=== PATIENT | female | born 1975 | race Caucasian/White ===

== ENCOUNTER → 2017-07-03 | Outpatient (CLI) | payer BC, OTHER ==
[~2017-07-03] MED LIST: VITAMIN C PO; VITAMIN D PO; [UNRECOGNIZED DRUG - OTHER] PO
== END | disposition home or self-care (01) ==
LOC: C.RDSM 16:25
PROVIDERS: ATTEND Family Medicine
DX: M25.572 Pain in left ankle and joints of left foot (principal)

== ENCOUNTER → 2017-07-09 | Outpatient (CLI) | payer OTHER ==
--- NOTE | 2017-07-09 15:56 | DIAGNOSTIC IMAGING REPORT ---
MRI LEFT ANKLE NO CONTRAST CLINICAL HISTORY: Persistent left ankle pain COMPARISON STUDY: Conventional radiographic study dated 07/03/2017 FINDINGS: Imaging was performed in sagittal, coronal, and axial planes. There are no areas of marrow edema to indicate occult fracture. There is minimal plantar calcaneal edema with minimal edema in the adjacent plantar fascia. Minimal plantar fasciitis is suspected. The anterior and posterior tibiofibular ligaments appear intact. The anterior posterior talo fibular ligaments appear intact. The deltoid ligament appears intact. There is no evidence for tendon tear or significant tendinopathy. IMPRESSION: 1. No evidence of occult fracture 2. No evidence of major ligamentous disruption 3. No evidence of tendon tear or stenotic and tendinopathy 4. Minimal plantar fasciitis Electronically signed by: Jorge L Yanes M.D. 07/09/2017 3:55 PM Dictated Date/Time: 07/09/2017 3:48 PM
== END | disposition home or self-care (01) ==
LOC: C.MRIBC 14:45
PROVIDERS: ATTEND Family Medicine
DX: M25.572 Pain in left ankle and joints of left foot (principal)

== ENCOUNTER → 2017-08-29 | Outpatient (CLI) | payer OTHER ==
--- NOTE | 2017-08-30 15:18 | MAMMOGRAPHY REPORT ---
BILATERAL FIRST EVER DIGITAL SCREENING MAMMOGRAM TOMOSYNTHESIS WITH CAD: 08/29/2017 CLINICAL HISTORY: . Baseline exam. Routine screening. TECHNIQUE: Breast tomosynthesis in addition to standard 2D mammography was performed. Current study was also evaluated with a Computer Aided Detection (CAD) system. COMPARISON: No prior exams were available for comparison. BREAST COMPOSITION: There are scattered areas of fibroglandular density in both breasts. FINDINGS: There is a 9 mm asymmetry in the superior posterior left breast on the MLO view that could represent normal overlapping tissue although additional spot compression tomosynthesis views and pos sible ultrasound are recommended. No other suspicious mass, architectural distortion or cluster of microcalcifications is seen bilatera lly. IMPRESSION: ACR BI-RADS CATEGORY 0: INCOMPLETE EVALUATION: NEED ADDITIONAL IMAGING EVALUATION The 9 mm asymmetry in the superior, posterior left breast needs additional imaging evaluation. The patient will be called to schedule an appointment. Approximately 10% of breast cancers are not detected with mammography. A negative mammographic report should not delay biopsy if a clinically suggestive mass is present. Kalani Faulkner M.D. ay/:08/29/2017 15:53:43 Youth Advocate: Jess FROST(Kathleen)(M), [facility] letter sent: Addl Imaging 0 BI-RADS Code: ACR BI-RADS Category 0: Incomplete Evaluation: Need Additional Imaging Evaluation
== END | disposition home or self-care (01) ==
LOC: C.MAMM 15:17
PROVIDERS: ATTEND Surgery Plastic and Reconstructive Surgery
DX: Z12.31 Encounter for screening mammogram for malignant neoplasm of breast (principal); N64.89 Other specified disorders of breast

== ENCOUNTER → 2017-09-04 | Outpatient (CLI) | payer OTHER ==
--- NOTE | 2017-09-04 15:16 | MAMMOGRAPHY REPORT ---
UNILATERAL LEFT DIGITAL DIAGNOSTIC MAMMOGRAM TOMOSYNTHESIS AND TARGETED BILATERAL ULTRASOUND: 8 CLINICAL HISTORY: 42-year-old woman called back from screening mammography for an asymmetry in the [place] perior posterior left breast on the MLO view. At the time of diagnostic workup in the left breast th e patient reported an area of abnormal sensation in the right upper outer quadrant for which targeted ultrasound was also performed. TECHNIQUE: Spot compression tomosynthesis left MLO, exaggerated lateral CC and CC views were obtained . COMPARISON: Comparison is made to exam dated: 08/29/2017 mammogram - [facility]. BREAST COMPOSITION: There are scattered areas of fibroglandular density in the left breast. FINDINGS: The spot compression left MLO view demonstrates effacement of the asymmetry in the superior posterior breast. No persistent mass or architectural distortion on the corresponding tomosynthesis images. Further evaluation with ultrasound was performed. Targeted ultrasound was performed throughout the superior left breast including the upper inner and u pper outer quadrants. Sonographically normal tissue is seen without a suspicious solid or cystic mas s. Additional targeted ultrasound was performed in the right upper outer quadrant in an area of abnormal sensation pointed out by the patient. Again sonographically normal tissue is seen without a suspici ous solid or cystic mass. IMPRESSION: ACR BI-RADS CATEGORY 2: BENIGN, TARGETED ULTRASOUND ACR BI-RADS CATEGORY 2: BENIGN 1. Effacement of the left superior, posterior asymmetry, and no suspicious sonographic correlate hilary ntified. This most likely represented normal overlapping fibroglandular tissue and no further workup is needed at this time. 2. No targeted sonographic abnormality in an area of abnormal sensation in the right upper outer aldair drant. Therefore, continued clinical follow-up is recommended. These results and recommendations were discussed with the patient at the time of the exam. Approximately 10% of breast cancers are not detected with mammography. A negative mammographic report should not delay biopsy if a clinically suggestive mass is present. Kalani Faulkner M.D. ay/:09/04/2017 12:22:21 Health Data Analyst: Jess CARRINGTON)(Deven), [facility] letter sent: Normal 1/2 BI-RADS Code: ACR BI-RADS Category 2: Benign Ultrasound BI-RADS: ACR BI-RADS Category 2: Benign
== END | disposition home or self-care (01) ==
LOC: C.MAMM 11:18
PROVIDERS: ATTEND Surgery Plastic and Reconstructive Surgery
DX: N64.9 Disorder of breast, unspecified (principal)